=== PATIENT | female | born 1995 | race Caucasian/White ===

== ENCOUNTER 2023-10-06 17:51 | Inpatient (IN) ==
[2023-10-06] MEDS ORDERED: HYDROmorphone 1 MG/1 ML SYRINGE IV SLOW PU PRN (18:24)
[2023-10-06] MEDS ORDERED: Acetaminophen IV 1 GM/100ML 1,000 MG/100 ML BAG IV PRN (18:27)
[2023-10-06] MEDS: NS 0.9% 1000 ml BAG 1,000 ML IV ONE ×2 (18:28→18:38)
[2023-10-06] MEDS: Piperacillin/Tazobac 3.375 BAG 3.375 GM/100 ML BAG IV ONE (18:53)
[2023-10-06] MEDS ORDERED: Zosyn per Pharmacy NOTE FOLLOW UP SCH (19:00)
[2023-10-06] MEDS: HYDROmorphone 0.5 MG/0.5 ML SYRINGE IV SLOW PU PRN (19:30)
[2023-10-06] MEDS: Ondansetron 4 mg VIAL 2 MG/ML 2 ml VIAL IV PRN (19:30)
[2023-10-06] MEDS ORDERED: Lidocaine 2% PF 5 ML VIAL ONE (20:25)
[2023-10-06] MEDS ORDERED: Midazolam 2 mg/2 ml VIAL 1 mg/ml 2 ml VIAL (2 mg) ONE (20:25)
[2023-10-06] MEDS ORDERED: fentaNYL 100 mcg/2 ml 50 MCG/ML VIAL ONE (20:25)
[2023-10-06] MEDS ORDERED: Acetaminophen IV 1 GM/100ML 1,000 MG/100 ML BAG IV ONE (21:33)
[2023-10-06] MEDS ORDERED: Buffered Lidocaine 1% SYRIN 1 ml INTRADERM ONE (21:33)
[2023-10-06] MEDS ORDERED: Naloxone 0.4 mg VIAL 0.4 mg/ml 1 ml VIAL IV PRN (21:33)
[2023-10-06] MEDS ORDERED: Bupivacaine 0.25% SDV PF 10 ML VIAL INJ ONE (21:54)
[2023-10-06] MEDS ORDERED: Famotidine IV 10 MG/ML 2 ml VIAL (20 mg) ONE (21:56)
[2023-10-06] MEDS ORDERED: Lactated Ringers 1000 ml BAG 1,000 ML IV SCH (22:00)
[2023-10-06] MEDS ORDERED: NS 0.45% 1000 ml BAG 1,000 ML IV SCH (22:00)
[2023-10-06] MEDS ORDERED: Propofol 10 MG/ML 20 ML BTL ONE (22:10)
[2023-10-06] MEDS ORDERED: Dexamethasone IV 4 MG/ML VIAL 1 ml VIAL ONE (22:10)
[2023-10-06] MEDS ORDERED: Rocuronium 50 mg VIAL 10 mg/ml 5 ml VIAL (50 mg) ONE (22:10)
[2023-10-06] MEDS ORDERED: Esmolol 10 MG/ML 10 ML (100 mg) IV ONE (22:23)
[2023-10-06] MEDS ORDERED: Phenylephrine 40 mcg/mL 10mL (400mcg) SYRINGE ONE (22:36)
[2023-10-06] MEDS ORDERED: Ondansetron 4 mg VIAL 2 MG/ML 2 ml VIAL ONE (22:52)
[2023-10-07] MEDS ORDERED: Calcium Carb (TUMS) 500 mg CHEW TAB PO PRN
[2023-10-07] MEDS ORDERED: Ondansetron 4 mg VIAL 2 MG/ML 2 ml VIAL ONE (00:11)
[2023-10-07] MEDS: Ondansetron 4 mg VIAL 2 MG/ML 2 ml VIAL IV PRN (00:13)
[2023-10-07] MEDS ORDERED: fentaNYL 100 mcg/2 ml 50 MCG/ML VIAL ONE (00:43)
[2023-10-07] MEDS: fentaNYL 100 mcg/2 ml 50 MCG/ML VIAL IV PRN (00:50)
[2023-10-07] MEDS: NS 0.9% 1000 ml BAG 1,000 ML IV SCH ×2 (01:44→02:42)
[2023-10-07] MEDS: ZOSYN 3.375 GM x ONE DOSE over 30 miuntes IV (02:42)
[2023-10-07] MEDS: ZOSYN 3.375 GM Q8H per EXTENDED INFUSION IV SCH ×2 (02:53→07:57)
[2023-10-07 06:12] LABS: Hematocrit 32.3 % (35-45); Hemoglobin 10.9 g/dL (11.5-14.3); Mean Corpuscular Hemoglobin 28.6 pg (27-33); Mean Corpuscular Hgb Conc 33.6 g/dL (31-36); Mean Platelet Volume 9.4 fL (7.5-11.2); Platelet Count 242 10^3/uL (150-450); Red Cell Distribution Width 13.2 % (12-17); White Blood Count 22.4 10^3/uL (3.8-11.8)
[2023-10-07 07:01] LABS: Calcium 8.2 mg/dL (8.6-10.3); Creatinine, Serum 0.69 mg/dL (0.51-0.95); Potassium 4.1 mmol/L (3.5-5.0); eGFR CKD-EPI 122.7 (>60)
[2023-10-07 07:23] LABS: ABS Lymphocytes 0.5 10^3/uL (1.0-4.8); ABS Monocytes 1.1 10^3/uL (0.0-0.9); ABS Neutrophils 20.7 10^3/uL (1.5-7.6); ABS Nucleated RBC 0.02 10^3/ul; Lymphocyte % 2.4 %; Nucleated Red Blood Cells % 0.1 %/100WBC (0.0-0.8)
[2023-10-07] MEDS: HYDROmorphone 0.5 MG/0.5 ML SYRINGE IV SLOW PU PRN (15:36)
[2023-10-08 06:59] LABS: ABS Eosinophils 0.1 10^3/uL (0.0-0.5); ABS Lymphocytes 1.5 10^3/uL (1.0-4.8); ABS Monocytes 1.4 10^3/uL (0.0-0.9); ABS Neutrophils 15.7 10^3/uL (1.5-7.6); ABS Nucleated RBC 0.01 10^3/ul; Eosinophil % 0.4 %; Hematocrit 31.1 % (35-45); Hemoglobin 10.5 g/dL (11.5-14.3); Mean Corpuscular Hemoglobin 28.5 pg (27-33); Mean Corpuscular Hgb Conc 33.9 g/dL (31-36); Mean Platelet Volume 8.7 fL (7.5-11.2); Platelet Count 277 10^3/uL (150-450); Red Cell Distribution Width 13.5 % (12-17); White Blood Count 18.7 10^3/uL (3.8-11.8)
[2023-10-08 07:44] LABS: Calcium 7.9 mg/dL (8.6-10.3); Creatinine, Serum 0.71 mg/dL (0.51-0.95); Potassium 3.3 mmol/L (3.5-5.0); eGFR CKD-EPI 120.2 (>60)
[2023-10-08] MEDS ORDERED: Magnesium Hydroxide LIQ 30 ML UDC PO PRN (09:16)
[2023-10-08] MEDS ORDERED: Senna/Docusate 8.6/50 mg (NF) TAB PO SCH (10:00)
[2023-10-08] MEDS: Docusate LIQ 100 MG/10 ML UDC PO SCH (10:57)
[2023-10-08] MEDS: Senna TAB 8.6 mg TAB PO SCH (10:58)
[2023-10-08] MEDS: KCL 20 MEQ/100 ML IVPREMIX 20 MEQ/100 ML BAG IV SCH (11:48)
[2023-10-09 05:56] LABS: Hemoglobin 10.2 g/dL (11.5-14.3); Mean Corpuscular Hemoglobin 28.4 pg (27-33); Mean Corpuscular Hgb Conc 33.9 g/dL (31-36); Mean Corpuscular Volume 83.9 fL (80-97); Mean Platelet Volume 8.4 fL (7.5-11.2); Platelet Count 300 10^3/uL (150-450); Red Blood Count 3.58 10^6/uL (3.63-4.92); Red Cell Distribution Width 13.6 % (12-17); White Blood Count 16.4 10^3/uL (3.8-11.8)
[2023-10-09 06:00] LABS: ABS Eosinophils 0.2 10^3/uL (0.0-0.5); ABS Lymphocytes 1.1 10^3/uL (1.0-4.8); ABS Neutrophils 13.1 10^3/uL (1.5-7.6); ABS Nucleated RBC 0.02 10^3/ul; Eosinophil % 0.9 %; Lymphocyte % 6.5 %; Nucleated Red Blood Cells % 0.1 %/100WBC (0.0-0.8)
[2023-10-09 06:28] LABS: Calcium 7.7 mg/dL (8.6-10.3); Creatinine, Serum 0.68 mg/dL (0.51-0.95); Potassium 3.5 mmol/L (3.5-5.0); eGFR CKD-EPI 123.1 (>60)
[2023-10-09] MEDS: Metoclopramide 5 MG/ML VIAL (10 mg) IV PRN (11:47)
[2023-10-10 06:33] LABS: Hematocrit 30.1 % (35-45); Hemoglobin 10.4 g/dL (11.5-14.3); Mean Corpuscular Hemoglobin 28.7 pg (27-33); Mean Corpuscular Hgb Conc 34.4 g/dL (31-36); Mean Corpuscular Volume 83.3 fL (80-97); Mean Platelet Volume 7.5 fL (7.5-11.2); Platelet Count 353 10^3/uL (150-450); Red Blood Count 3.61 10^6/uL (3.63-4.92); Red Cell Distribution Width 13.8 % (12-17); White Blood Count 13.5 10^3/uL (3.8-11.8)
[2023-10-10 06:38] LABS: ABS Eosinophils 0.2 10^3/uL (0.0-0.5); ABS Lymphocytes 1.9 10^3/uL (1.0-4.8); ABS Monocytes 1.8 10^3/uL (0.0-0.9); ABS Neutrophils 9.5 10^3/uL (1.5-7.6); Eosinophil % 1.8 %
[2023-10-10 06:55] LABS: Creatinine, Serum 0.65 mg/dL (0.51-0.95); Potassium 3.3 mmol/L (3.5-5.0); eGFR CKD-EPI 124.5 (>60)
[2023-10-10] MEDS: Iohexol 300 (CONTRAST) 10 ML SDV IV ONE (11:45)
[2023-10-10] MEDS: KCL 20 MEQ/100 ML IVPREMIX 20 MEQ/100 ML BAG IV SCH (12:29)
[2023-10-10] MEDS ORDERED: Senna TAB 8.6 mg TAB PO PRN (12:43)
[2023-10-10] MEDS: Cefepime 2 GM in Dextrose 2 GM/50 ML BAG IV SCH (14:43)
[2023-10-10] MEDS: metroNIDAZOLE IV 500 MG/100ML 500 MG/100 ML BAG IVPB SCH (15:44)
[2023-10-11 06:02] LABS: ABS Eosinophils 0.3 10^3/uL (0.0-0.5); ABS Lymphocytes 1.8 10^3/uL (1.0-4.8); ABS Monocytes 1.3 10^3/uL (0.0-0.9); ABS Neutrophils 8.8 10^3/uL (1.5-7.6); Eosinophil % 2.7 %; Hemoglobin 10.1 g/dL (11.5-14.3); Lymphocyte % 14.9 %; Mean Corpuscular Hemoglobin 28.2 pg (27-33); Mean Corpuscular Hgb Conc 33.7 g/dL (31-36); Mean Corpuscular Volume 83.5 fL (80-97); Mean Platelet Volume 7.5 fL (7.5-11.2); Platelet Count 363 10^3/uL (150-450); Red Blood Count 3.59 10^6/uL (3.63-4.92); Red Cell Distribution Width 13.5 % (12-17); White Blood Count 12.4 10^3/uL (3.8-11.8)
[2023-10-11 06:33] LABS: Calcium 7.8 mg/dL (8.6-10.3); Creatinine, Serum 0.55 mg/dL (0.51-0.95); Magnesium 1.9 mg/dL (1.9-2.7); Potassium 3.7 mmol/L (3.5-5.0); eGFR CKD-EPI 129.6 (>60)
[2023-10-11 14:53] VITALS: BP 116/68
== END 2023-10-11 15:13 | disposition home or self-care (01) | DRG 229 ==
LOC: EDHOLD 17:51 → ED 17:51 → EDHOLD 21:13 → MED 10-07 01:09
PROVIDERS: ADMIT Surgery Surgical Critical Care; ATTEND Surgery Surgical Critical Care